=== PATIENT | male | born 1990 | race Caucasian/White ===

== ENCOUNTER 2024-09-02 18:00 | Emergency (ER) | payer MEDICAID ==
[~2024-09-02] VITALS: Ht 180.3 cm; Wt 109.8 kg
[2024-09-02 18:04] VITALS: O2SAT 100
[2024-09-02] MEDS: KETOROLAC 30MG/ML VIAL IM ONE (19:31)
[2024-09-02] MEDS ORDERED: NAPR-681 MT (20:10)
[2024-09-02] MEDS ORDERED: CYCL5TAB3 MT (20:10)
[2024-09-02] MEDS ORDERED: LIDO700A30 TP (20:10)
[2024-09-02] MEDS ORDERED: MELO-104 MT (20:37)
[2024-09-02 20:46] VITALS: BP 138/87; PULSE 100; RESP 16; TEMP 36.94740; O2SAT 100
== END 2024-09-02 20:46 | disposition home or self-care (01) ==
LOC: ER 19:33
DX: M54.42 Lumbago with sciatica, left side (principal); E11.9 Type 2 diabetes mellitus without complications; Z88.2 Allergy status to sulfonamides; Z88.1 Allergy status to other antibiotic agents
CPT/HCPCS: 96372; 99283; J1885; Z7610

== ENCOUNTER 2025-02-16 18:14 | Emergency (ER) | payer OTHER ==
[~2025-02-16] VITALS: Ht 180.3 cm; Wt 117.9 kg
[~2025-02-16 18:14] MED LIST: CYCL5TAB3 MT; LIDO700A30 TP; MELO-104 MT
[2025-02-16 18:32] VITALS: BP 135/89; PULSE 91; RESP 16; TEMP 36.6; O2SAT 98
[2025-02-16] MEDS ORDERED: IBUP-2030 MT (20:48)
[2025-02-16] MEDS ORDERED: LIDO-53 TP (20:48)
[2025-02-16] MEDS: KETOROLAC 15MG/ML VIAL IM ONE (21:15)
[2025-02-16] MEDS: LIDOCAINE 5% PATCH TOP ONE (21:15)
== END 2025-02-16 21:54 | disposition home or self-care (01) ==
LOC: ER 18:14
DX: M54.41 Lumbago with sciatica, right side (principal); M54.42 Lumbago with sciatica, left side; E11.9 Type 2 diabetes mellitus without complications; Z88.2 Allergy status to sulfonamides; Z88.1 Allergy status to other antibiotic agents; Z79.899 Other long term (current) drug therapy; Z98.890 Other specified postprocedural states
CPT/HCPCS: 99283; 82962; 96372; J1885